=== PATIENT | female | born 1950 | race Caucasian/White ===

== ENCOUNTER → 2019-04-11 | Outpatient (CLI) | payer MEDICARE | LOC: CARDLAB 08:37 → CARDREHAB 09:09 | DX: R06.09 Other forms of dyspnea (principal) | CPT/HCPCS: A9500 ==

== ENCOUNTER 2019-06-13 13:30 | Outpatient (RCR) | payer MEDICARE | END 2019-06-15 | disposition still patient (30) | LOC: CARDREHAB | DX: Z48.812 Encounter for surgical aftercare following surgery on the circulatory system (principal); I25.2 Old myocardial infarction; I25.10 Atherosclerotic heart disease of native coronary artery without angina pectoris; I12.9 Hypertensive chronic kidney disease with stage 1 through stage 4 chronic kidney disease, or unspecified chronic kidney disease; E11.36 Type 2 diabetes mellitus with diabetic cataract; E11.22 Type 2 diabetes mellitus with diabetic chronic kidney disease; D63.1 Anemia in chronic kidney disease; N18.4 Chronic kidney disease, stage 4 (severe); E78.5 Hyperlipidemia, unspecified; G47.30 Sleep apnea, unspecified; I48.91 Unspecified atrial fibrillation; E03.9 Hypothyroidism, unspecified; E21.3 Hyperparathyroidism, unspecified; E66.9 Obesity, unspecified; E88.81 Metabolic syndrome and other insulin resistance; Z95.1 Presence of aortocoronary bypass graft ==

== ENCOUNTER 2019-06-27 10:45 | Outpatient (RCR) | payer MEDICARE | END 2019-09-16 | disposition home or self-care (01) | LOC: CARDREHAB | DX: Z48.812 Encounter for surgical aftercare following surgery on the circulatory system (principal); Z95.1 Presence of aortocoronary bypass graft; I25.2 Old myocardial infarction ==